=== PATIENT | male | born 1980 | race Caucasian/White ===

== ENCOUNTER 2020-06-30 11:06 | Emergency (ER) | payer SELFPAY ==
[~2020-06-30] VITALS: Ht 167.6 cm; Wt 81.8 kg
[2020-06-30] MEDS ORDERED: KETOROLAC 30 MG/1 ML IM ONE (12:00)
[2020-06-30] MEDS ORDERED: KETOROLAC 60 MG/2 ML ONE (12:06)
[2020-06-30 12:58] VITALS: BP 131/77
== END 2020-06-30 13:00 | disposition home or self-care (01) ==
LOC: ED 12:30
DX: M47.816 Spondylosis without myelopathy or radiculopathy, lumbar region (principal); M51.26 Other intervertebral disc displacement, lumbar region; G89.29 Other chronic pain; R00.0 Tachycardia, unspecified
CPT/HCPCS: 72131; 93005; 96372; 99284; J1885